=== PATIENT | male | born 1960 | race Caucasian/White ===

== ENCOUNTER 2019-01-22 11:59 | Inpatient (IN) | payer BC ==
[~2019-01-22] VITALS: Ht 177.8 cm; Wt 99.8 kg
[~2019-01-22 11:59] MED LIST: GLUMETZA500; LANTUS; LANTUS SUBQ
[2019-01-22 12:01] VITALS: BP 108/61
[2019-01-22 13:22] LABS: ABSOLUTE NEUTROPHILS 6.7 thou/uL (1.4-8.2); BASOPHILS 0.9 % (0.0-2.0); HEMATOCRIT 42.7 % (42.0-52.0); HEMOGLOBIN 14.3 gm/dL (14.0-18.0); LYMPHOCYTES 19.7 % (24.0-44.0); MCHC 33.4 g/dL (28.0-37.0); MONOCYTES 9.5 % (1.0-8.0); PLATELET COUNT 226 thou/uL (150-400); POLYS 66.9 % (36.0-66.0); RBC 5.09 mil/uL (4.50-6.00); RDW 13.1 % (10.5-14.5); WBC 9.9 thou/uL (4.0-11.0)
[2019-01-22 13:26] LABS: CALCIUM 8.5 mg/dL (8.5-10.1); POTASSIUM 4.3 mmol/L (3.5-5.1)
[2019-01-22 13:33] LABS: ALBUMIN 3.2 g/dL (3.4-5.0); TOTAL BILIRUBIN 0.5 mg/dL (<0.1-1.0)
[2019-01-22] MEDS ORDERED: LISINOPRIL10 MG PO (15:15)
[2019-01-22] MEDS ORDERED: KLOR-CON 1010 MEQ PO (15:15)
[2019-01-22] MEDS ORDERED: LEVEMIR SUBQ (15:16)
[2019-01-22] MEDS ORDERED: ALLOPURINOL 10100 M1 PO (15:16)
[2019-01-22] MEDS ORDERED: SYNTHROID50 MCG PO (15:20)
[2019-01-22] MEDS ORDERED: TRULICITY1.5 MG/0.5 SUBQ (15:22)
[2019-01-22] MEDS ORDERED: UNICOMPLEX M TA1 TA1 PO (15:23)
[2019-01-22 16:03] VITALS: BP 139/82
--- NOTE | 2019-01-22 16:12 | NUR ---
ATTEMPTED TO GIVE REPORT; CHARGE NURSE WILL CALL BACK ONCE ON UNIT
[2019-01-22 16:43] VITALS: BP 141/77
[2019-01-22 16:55] VITALS: BP 134/74
--- NOTE | 2019-01-22 17:26 | NUR ---
REC PT FROM ED WITH TWO ABX, ONE ALREADY RUNNING, VANCO AND ZOYSN, GAVE PT ROOM/CALL LIGHT DEMO, ROOM AIR, NO C/O PAIN AT THIS TIME. STATES HES FINE RE: PAIN AT THIS TIME. STATES HE FEELS BAD BEING HERE LIKE THERE ARE SO MANY OTHER SICK. CAME AT [employer]. HAS A COUGH FROM A RECENTLY ACQUIRED WHILE ON VACATION IN [place]. STATES HE ALWAYS GETS A COLD IF HE FLYS. ALSO HAS HAYFEVER, COUGH ONLY PRODUCTIVE AT TIMES, CLEAR. PAPERS SIGNED. ENCOURAGED HIM TO USE CALL LIGHT FOR ANY NEEDS
[2019-01-22 19:45] VITALS: BP 143/75
--- NOTE | 2019-01-22 20:03 | NUR ---
REQUESTED INPT RN COLLECT WOUND CX THIS RN RECEIVED HYPOTENSIVE PT AT TIME OF TRANSPORTING THIS PT; HS RN AGREES TO COLLECT AND SEND WOUND CULTURE; R FOOT
[2019-01-23 00:45] VITALS: BP 129/86
--- NOTE | 2019-01-23 03:45 | NUR ---
ASSUMED PT CARE AT 1900. PT A/OX4, VITAL SIGNS STABLE, ASSESSMENT CHARTED. NO COMPLAINTS OF PAIN. WOUND CULTURE DONE AND SENT TO LAB. RESTED WELL THROUGH THE NIGHT. PROGRESSING TOWARD PLAN OF CARE. CONTINUEING ABX, WILL CONTINUE TO MONITOR.
[2019-01-23 04:15] VITALS: BP 159/76
[2019-01-23 08:03] VITALS: BP 142/73
[2019-01-23 15:48] VITALS: BP 137/83
--- NOTE | 2019-01-23 18:30 | NUR ---
Assumed care of pt at 0700. Pt alert and oriented x4. Infectious disease DrElver and informatica architect saw pt today. IV antibiotics infusing. Assistant Facility Manager requests MRI. Ordered MRI. Pt scheduled for procedure tomorrow 01/24. Consent signed and in chart. No c/o pain. Will continue to monitor.
[2019-01-23 20:35] VITALS: BP 137/82
[2019-01-24] VITALS (9 sets, daily range): BP systolic 129–152; BP diastolic 62–92
--- NOTE | 2019-01-24 02:50 | NUR ---
DELAY IN 1700 VANCOMYCIN.ZOYSN STARTED LATE. PT REFUSED WHEN IDEA OF STARTING ANOTHER IV WAS PRESENTED.AT THIS POINT, WILL WAIT FOR ZOSYN TO BE COMPLETED BEFORE STARTING VANCOMYCIN. PHARMACY AWARE.
[2019-01-24 06:33] LABS: HEMOGLOBIN 15.1 gm/dL (14.0-18.0); MCH 28.1 pg (26.0-34.0); MCHC 33.6 g/dL (28.0-37.0); MCV 83.5 fL (80.0-100.0); RBC 5.39 mil/uL (4.50-6.00); RDW 13.3 % (10.5-14.5); WBC 7.8 thou/uL (4.0-11.0)
[2019-01-24 06:49] LABS: CALCIUM 8.8 mg/dL (8.5-10.1); CREATININE 0.9 mg/dL (0.7-1.3); POTASSIUM 4.2 mmol/L (3.5-5.1)
--- NOTE | 2019-01-24 09:06 | HC ---
[facility] [place] [address] CONSULTATION Name: CUONG FERNANDEZ Room #: 208-P ADM IN M.R.#: [id number] Admission: 01/22/19 ������������������ Attend Phys: Andres Victoria MD Discharge: ������������������ Date of : 56 Report #: [id number] THIS REPORT FOR: //name// CC: Jus Bello DO Andres Victoria DATE OF SERVICE: 01/23/2019 INFECTIOUS DISEASE CONSULTATION ATTENDING PHYSICIAN: Dr. Victoria. HISTORY OF PRESENT ILLNESS: A 58-year-old white man with right foot diabetic foot infection since 09/2018 or 10/2018. He was on a trip, lots of walking, felt that he might have developed some increasing pain and increased temperature right leg. He was advised to be admitted to the hospital through the Emergency Room to rule out deep infection. No systemic symptoms. PAST MEDICAL HISTORY: Gastric bypass surgery on an outpatient basis a couple of years ago, diabetes mellitus since 2009 or thereabouts. DRUG ALLERGIES: None listed. MEDICATIONS: The patient is currently on treatment with . Current medication, vancomycin 1 gram IV every 8 hours, Zosyn 3.37 grams IV every 8 hours, insulin glargine 30 units subQ at bedtime, insulin lispro per sliding scale, hydrocodone p.r.n., ondansetron p.r.n. SOCIAL HISTORY: [employer]. . No children. REVIEW OF SYSTEMS: No systemic symptoms, some pain right foot, increased temperature and swelling right lower extremity. Otherwise negative. PHYSICAL EXAMINATION: GENERAL: A well-developed man, not toxic looking, no distress. VITAL SIGNS: Temperature maximum 37.6, pulse 79, respirations 16, BP 142/73, height 5 feet 10 inches, weight 220 pounds. HEENMT: Within range. NECK: Supple. LUNGS: Clear. HEART: S1, S2. No gallops. ABDOMEN: Soft, no masses or megaly. GENITALIA AND RECTAL: Deferred. EXTREMITIES: Revealed some mild swelling of right foot and ankle. Good dorsalis pedis right foot. Increased temperature right foot and right leg [facility] [address] [place] [address] CONSULTATION Name: CUONG FERNANDEZ Room #: 208-P ADM IN .R.#: [id number] Admission: 01/22/19 ������������������ Attend Phys: Andres Victoria MD Discharge: ������������������ Date of : 56 Report #: [id number] compared to the left. There is an ulceration superficial under the head of the right fourth metatarsophalangeal joint. NEUROLOGIC: Grossly within normal limits. LABORATORY DATA: BUN 25, creatinine 169. C-reactive protein 28 mg/L. WBC 9900, hemoglobin 14.3 g/dL, platelets 226,000. White blood cell count differential revealed 66% segmented neutrophils, 19% lymphocytes. ESR 41 mm per hour. Vancomycin trough pending. X-rays of the right foot revealed no bony abnormalities. ASSESSMENT: 1. Cellulitis, right lower extremity. 2. Right foot ulcer, doubt a bone infection. 3. Diabetes mellitus. 4. Chronic kidney disease. SUGGESTIONS: While awaiting culture results, continue coverage with vancomycin and Zosyn. Doubt we are dealing with deep infection. A short hospitalization will benefit the patient to stable worsening of infection. Possibly discharge the patient shortly on oral antibiotic and continue follow up with Dr. Hernan Harris. Dr. Victoria, thank you for requesting my suggestions. ��������������������������������������������� <ELECTRONICALLY SIGNED> ���������������������������������������� By: Blair Luna MD ��������������������������������������������� 01/[birth year]1906 0933 58 Blair Luna MD /nt
--- NOTE | 2019-01-24 10:29 | H ---
[facility] [place] [place] [address] HISTORY AND PHYSICAL Name: CUONG FERNANDEZ Room #: 208-P ADM IN M.R.#: [id number] Admission: 01/22/19 ������������������ Attend Phys: Andres Victoria MD Discharge: ������������������ Date of : 56 Report #: [id number] THIS REPORT FOR: //name// CC: uJs Victoria DATE OF SURGERY: 01/24/2019 INTRODUCTION: The patient is a 58-year-old male who has been admitted to [facility] with a right diabetic foot infection. He originally had a wound that probes to the third metatarsophalangeal joint, dorsal cellulitis, surrounding erythema present. He has been on IV antibiotics for 24 hours and has shown some improvement in the dorsal inflammation. 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 Because of the exposed joint, MRI was ordered, which confirmed the presence of acute osteomyelitis in the third metatarsal head and possibly the base of the proximal phalanx with sepsis of what is remaining of the metatarsophalangeal joint. The patient's condition warrants more aggressive surgical intervention in the form of incision and drainage and third metatarsal head resection. PAST MEDICAL HISTORY: The patient has a history of diabetes with diabetic neuropathy. He has had multiple histories of past ulcerations involving predominantly the right foot including ulcerations of the right fifth toe, the plantar forefoot in the third metatarsal head area. Because of his neuropathy he has been at a greater risk for foot complications. In the past, his healing has been accomplished through offloading, oral antibiotics and local wound care. This most recent episode of ulceration has occurred while he was out of the country and spending considerable amount of time on his foot. The patient also is hypothyroid, hypertensive and has hypercholesterolemia. MEDICATIONS: The patient takes Trulicity, Symbicort, atorvastatin. ALLERGIES: The patient has no known allergies. PAST SURGICAL HISTORY: Includes appendectomy, blepharoplasty, left wrist fracture repair and gastric bypass without complications in surgery or anesthesia. SOCIAL HISTORY: The patient is gainfully employed, is engaged in frequent travel. Denies usage of alcohol, tobacco or illicit drugs. He does have a supportive home life. PHYSICAL EXAMINATION: VASCULAR: Pedal exam, dorsalis pedis, posterior tibial pulses graded at 2/4. Capillary refill time is within normal limits. The patient demonstrates 1+ pedal and lower leg edema bilaterally. The right foot is slightly more [facility] [address] [place] [address] HISTORY AND PHYSICAL Name: CUONG FERNANDZE Room #: 208-P [facility] IN [facility]#: [id number] Admission: 01/22/19 ������������������ Attend Phys: Andres Victoria MD Discharge: ������������������ Date of : 56 Report #: [id number] edematous in the forefoot region of the ulceration. NEUROLOGIC: The patient lacks protective threshold when tested with a Victoria-Yanely monofilament to the ankle level. DERMATOLOGIC: The patient demonstrates a 1.5 cm neuropathic ulceration beneath the right third metatarsophalangeal joint, which has probed to deeper structures including the third metatarsophalangeal joint and bone. There is no gross drainage at this time. This wound was debrided 24 hours ago and it appears to have sealed over. Remaining dorsal erythema from cellulitis has somewhat reduced. RADIOGRAPHIC EXAMINATION: MRI demonstrates a T1 marrow infiltration of the distal third metatarsal and proximal phalangeal base consistent with acute bone infection and joint sepsis. IMPRESSION: Diabetic neuropathy with diabetic foot wound, right foot and osteomyelitis of right third metatarsal and possibly proximal phalanx. PLAN: The patient's condition has been reviewed with him. He understands the gravity of the condition and the treatment recommendations, which include an open debridement of this ulcer and surgical resection of the third metatarsal head and possibly the base of the proximal phalanx. At this time, intraoperative findings will dictate whether or not there is a need for additional debridement. The patient will remain on IV antibiotics and we will initiate wound care with careful monitoring for progressive infectious changes. Once he is stable and final bacteriologic ID is made, a transition to outpatient therapy will be anticipated. The patient has been advised of potential risks and complications, which include but not limited to pain, swelling, bleeding, numbness, infection, delayed healing, tourniquet complications, anesthesia complications, transfer pressure to adjacent metatarsals, progressive infection requiring additional surgery or possible limb loss. The patient understands these issues and no questions regarding surgical approach and has given verbal consent to proceed. ��������������������������������������������� <ELECTRONICALLY SIGNED> ���������������������������������������� By: Hernan Harris DPM ��������������������������������������������� 01/24/19 1029 1720 1816 Hernan Harris DPM /deanne
--- NOTE | 2019-01-24 10:29 | HC ---
[facility] [place] [address] CONSULTATION Name: CUONG FERNANDEZ Room #: 208-P ADM IN M.R.#: [id number] Admission: 01/22/19 ������������������ Attend Phys: Andres Victoria MD Discharge: ������������������ Date of : 56 Report #: [id number] THIS REPORT FOR: //name// CC: JOYA Bello DO Andres Victoria DATE OF SERVICE: 01/23/2019 INTRODUCTION: The patient is a 58-year-old male, who is being seen at [facility] for infection involving his right foot. The patient is well known to me as I have seen him in our private practice over the past 4 years for various conditions regarding his feet. Most recently, he has presented to our office 2 weeks following the onset of recurrent ulcer on the plantar right foot that tracts to deep tissues and demonstrated dorsal cellulitis. He has been admitted for IV antibiotics and further evaluation with regard to this condition. PAST MEDICAL HISTORY: Includes a history of diabetes mellitus with peripheral neuropathy. He indicates that his blood sugars have been reasonably well managed over time. The remainder of his past medical history with regard to this admission is noncontributory. PEDAL EXAM: The patient's dorsalis pedis and posterior tibial pulses are graded 2/4 bilaterally, capillary refill time is within normal limits. Neurologically, the patient lacks protective threshold to the ankle level and has had repeat ulcerations, predominantly on the right foot that have been associated with his neuropathy. He has been somewhat resistant to protection of his feet; however, has more recently adopted the usage especially the insoles and extra depth shoes. His clinical exam reveals a 1.5 cm ulceration in plantar aspect of the right third metatarsal head, which today looks improved following more aggressive debridement 24 hours ago. This wound probed to joint and deeper tissues and was irrigated and cleansed in our office. Today, there is a reduction in overall edema and dorsal cellulitis in this area. Compression around the wound does not exude any pus. IMAGING STUDIES: The patient's radiographs in our office and in the hospital indicative of second and third metatarsophalangeal joint and chronic dislocations without any evidence of osteomyelitis at the third metatarsal head. IMPRESSION: 1. Diabetes mellitus with diabetic peripheral neuropathy. 2. Diabetic foot infection that probes to joint. PLAN: The patient's condition has improved apparently through a combination of [address] [address] CONSULTATION Name: CUONG FERNANDEZ Room #: 208-P [facility] IN M.R.#: [id number] Admission: 01/22/19 ������������������ Attend Phys: Andres Victoria MD Discharge: ������������������ Date of : 56 Report #: [id number] debridement, offloading and IV antibiotics. We will obtain MRI to ensure that he does not have an underlying bone infection. Based on the study and his future progress, we will make decisions regarding next steps in care, which could ideally include a transition to home antibiotic therapy versus a possible need for more aggressive debridement at this site. ��������������������������������������������� <ELECTRONICALLY SIGNED> ���������������������������������������� By: Hernan Harris DPM ��������������������������������������������� 01/24/19 1029 1314 0039 Hernan Harris DPM /nt
--- NOTE | 2019-01-24 11:56 | NUR ---
DISCOVERED PT WAS TO MOVE TO 4E AFTER HIS SURGERY, GAVE FULL REPORT TO JARED TONY WHO STATED HE ALSO HAD PT DAY PRIOR
--- NOTE | 2019-01-24 13:11 | NUR ---
GAVE REPORT TO BARRY ON 4E, WILL GATHER UP SUPPLIES AND HAVE VOLUNTEER TRANSPORT BELONGINGS TO UPSTAIRS
--- NOTE | 2019-01-24 14:55 | NUR ---
FAXED REFERRAL TO [facility] FOR IV INFUSION SPOKE WITH MARVIN IN INTAKE AND SHE RECEIVED REFERRAL AND WILL CHECK BENEFITS. DCP TO FOLLOW.
--- NOTE | 2019-01-24 15:40 | NUR ---
Case opened to follow for dc planning. Pt is s/p I&D today of diabetic RLE plantar wound. Newly dx osteo and on iv atb. Pt is A&ox4 and able to participate in cm assessment at bedside. CM role introduced. Possible need for iv atb and wound care f/u anticipated. Pt is open to home infusion, home health and/or outpt services pending the care team recommendations. Home infusion benefits check per [facility] as they are in network with the pt's insurance plan. The pt does have both HH and infusion coverage at 80%. He has met his deductable for the year and would have 100% coverage once his out of pocket max has been met. His copay will vary depending on the drug. He has a flight of stairs up to his bedroom with attached bath. He lives with his who is currently on summer break from her teaching job;therefore able to assist as needed. Home address verified. Pcp is Dr. Bello. Dc timeframe is uncertain. Will follow.
--- NOTE | 2019-01-24 18:22 | NUR ---
Pt came up to unit from PACU approx 1400. Post-op I&D right foot. Denies pain. Dressing clean and intact. IV antibiotics infusing. Accu checks achs. Pt refuses insulin. No c/o at this time. Will continue to monitor.
[2019-01-25 03:35] VITALS: BP 137/80
--- NOTE | 2019-01-25 05:49 | NUR ---
PATIENT ALERT AND ORIENTED X4. UP TO BATHROOM AD CIERA. DRESSING ON R FT D/I. DENIES PAIN. BS 285, RECIEVED 6 UNITS LISPRO INSULIN WELL HIS STANDARD INSULIN. SLEPT OFF AND ON DURING NIGHT.
[2019-01-25 07:50] VITALS: BP 142/83
--- NOTE | 2019-01-25 09:01 | NUR ---
ASSUMED CARE OF PT AT 0700. ASSESSMENT CHARTED. A&O,X4. S/P RIGHT FOOT I&D, TROY WRAP IN PLACE. DENIES PAIN. DR. RODRIGUEZ AT BEDSIDE THIS AM. ACHS, INSULIN GIVEN PER SLIDING SCALE. PT IN STABLE CONDITION. WILL CONTINUE TO MONITOR.
--- NOTE | 2019-01-25 09:17 | O ---
[facility] [place] [address] OPERATIVE REPORT Name: CUONG FERNANDEZ Room #: 424-P ADM IN M.R.#: [id number] Admission: 01/22/19 ������������������ Attend Phys: Andres Victoria MD Discharge: ������������������ Date of : 56 Report #: [id number] THIS REPORT FOR: //name// CC: Jus Vicotria ____ ____ DATE OF SERVICE: 01/24/2019 PREOPERATIVE DIAGNOSIS: Diabetic foot ulcer with osteomyelitis, right third metatarsal. POSTOPERATIVE DIAGNOSIS: Diabetic foot ulcer with osteomyelitis, right third metatarsal. PROCEDURE: Incision and drainage, right foot wound with third metatarsal head resection. ANESTHESIA: General with local anesthetic. DESCRIPTION OF PROCEDURE: The patient was brought to the operating room and placed on the operating room table in supine position. Three layers of Webril padding were placed around the right ankle. Pneumatic ankle tourniquet was placed over this in preparation for later inflation. IV sedation was begun without complications. A 10 mL of 1:1 mix of 1% lidocaine plain and 0.5% Marcaine plain were injected at the midshaft of the third metatarsal to obtain local anesthesia. Foot was prepped and draped in usual sterile fashion. Esmarch bandage was then used to exsanguinate the right foot. Ankle tourniquet was inflated to 250 mmHg. Attention was then directed to the plantar aspect of the right foot where 1.5 cm ulceration was excised sharply. At the level of subcutaneous tissue, there was a necrotic fat. No gross pus was encountered; however, there was a thin drainage from this area as well as from the third metatarsophalangeal joint. Inspection revealed necrosis and essentially absence of plantar stabilizing structures for the joint including the joint capsule, plantar plate. Flexor tendon was yellow and of poor quality. Debridement of all the soft tissues was performed. The third metatarsal head cartilage was yellow and the metatarsal head itself was soft to probing. This time, metatarsal head was removed at a point where the metatarsal neck was free from necrotic tissue and was of normal consistency. Oscillating saw was used to transect the metatarsal head and removal allowed for inspection of the dorsal joint. There was no additional dorsal necrosis. The base of the proximal phalanx was inspected and was free of necrosis and was of normal integrity. Rongeur was used to remove necrotic tissue from the periarticular areas and the wound area was then irrigated with 3 liters of antibiotic solution utilizing pulse lavage. The wound was then inspected for additional pathology, none was identified. It was then packed with quarter strength Dakin's gauze following [address] [address] OPERATIVE REPORT Name: CUONG FERNANDEZ Room #: 424-P ADM IN M.R.#: [id number] Admission: 01/22/19 ������������������ Attend Phys: Andres Victoria MD Discharge: ������������������ Date of : 56 Report #: [id number] release of the ankle tourniquet. Bulky bandages were applied with Samm bandage. There was normal return of blood flow to all toes as indicated by capillary refill time of less than 3 seconds. The patient was alert and reactive in the operating room and subsequently transferred to the postanesthesia recovery room where vital signs were monitored by recovery room staff. There were no complications during the procedure. There was osseous specimen sent to pathology for examination. Culture and sensitivity swabs were obtained prior to irrigation and changing of gloves. The patient was seen in recovery area, was noted to be in stable condition and will be transferred to the hospital floor per anesthesia. We will begin his first dressing changes starting tomorrow and continue antibiotics as per Dr. Luna. It is possible that if his wound is stable that transition to outpatient therapy could be considered in the next 48 hours. ��������������������������������������������� <ELECTRONICALLY SIGNED> ���������������������������������������� By: Hernan Harris DPM ��������������������������������������������� 01/25/19 0917 1506 1548 Hernan Harris DPM /deanne
--- NOTE | 2019-01-25 10:37 | NUR ---
Notification of pt with plantar diabetic foot wound requiring surgical intervention 01/24. Pt voices very good appetite and eating high protein at every meal, not many carbs. Able to order own meals. BG started very high yesterday up to 337 but now 166. Had no dietary questions. Low nutrition risk
--- NOTE | 2019-01-25 11:08 | NUR ---
WOUND CARE; BROUGHT AN OFFLOADING SHOE ORDERED AND EDUCATED THE PATIENT ON ITS USE. THE PATIENT ACKNOWLEGES UNDERSTANDING. HE IS ON BED REST AND WILL NOT NEED IT UNTIL DISCHARGE. DISCUSSED WITH RN
[2019-01-25] MEDS ORDERED: HYDROCODON-ACE1 EAC7 PO (13:40)
[2019-01-25] MEDS ORDERED: VANCO 1 GR1 GM/250 M IVPB (13:41)
[2019-01-25 14:06] VITALS: BP 142/83
[2019-01-25 16:15] VITALS: BP 142/83
--- NOTE | 2019-01-28 07:56 | HC ---
[facility] [place] [address] CONSULTATION Name: CUONG FERNANDEZ Room #: 424-P [facility] M.R.#: [id number] Admission: 01/22/19 ������������������ Attend Phys: Andres Victoria MD Discharge: 01/25/19 ������������������ Date of : 56 Report #: [id number] THIS REPORT FOR: //name// CC: Jus Victoria DATE OF SERVICE: 01/23/2019 CHIEF COMPLAINT: Diabetic foot ulceration. HISTORY OF PRESENT ILLNESS: This is a 58-year-old male patient admitted to the hospital with pain, swelling and drainage from an ulceration on the plantar aspect of his right foot. He has had a neuropathic ulceration over the last couple of weeks with increasing drainage. It did probe to the metatarsophalangeal joint and he is admitted for further evaluation and treatment. PAST MEDICAL HISTORY: Positive for diabetes mellitus with peripheral neuropathy, hypercholesterolemia and diabetes. ALLERGIES: No known drug allergies. MEDICATIONS: Allopurinol, Trulicity hydrocodone, insulin, Synthroid, lisinopril, multivitamin, vancomycin. SOCIAL HISTORY: Negative for alcohol or tobacco. FAMILY HISTORY: Noncontributory. REVIEW OF SYSTEMS: CONSTITUTIONAL: The patient denies fever, chills or weight loss. EYES: The patient denies visual changes, redness or drainage. ENT: The patient denies earache, nasal drainage, sore throat. CARDIOVASCULAR: The patient denies chest pain, palpitations or diaphoresis. PULMONARY: The patient denies cough or shortness of breath. GASTROINTESTINAL: The patient denies nausea, vomiting, diarrhea or abdominal pain. ORTHOPEDIC: The patient denies pain or swelling of the extremities, but does note the drainage and ulceration involving the plantar aspect of his right foot. Other systems in a 14-point review of systems are negative. PHYSICAL EXAMINATION: VITAL SIGNS: Include temperature 36.8, pulse 81, respiratory rate of 18, blood pressure 137/83. GENERAL: A well-developed, well-nourished male patient who appears to be in [address] [address] CONSULTATION Name: CUONG FERNANDEZ Room #: [address] [place] [address] [place] M.R.#: [id number] Admission: 01/22/19 ������������������ Attend Phys: Andres Victoria MD Discharge: 01/25/19 ������������������ Date of : 56 Report #: [id number] minimal distress. HEENT: Head normocephalic. Nose and throat clear. NECK: Supple. LUNGS: Clear. HEART: Regular. ABDOMEN: Soft. Bowel sounds present. EXTREMITIES: Lower extremities demonstrate easily palpable distal pulses. He has an ulceration on the plantar aspect of the right foot underlying the third MTP area. It does probe to the MTP joint. LABORATORY DATA: Include sodium 139, potassium 4.3, chloride 105, CO2 of 21, BUN 25, creatinine 1.0, glucose 169. Lactic acid 1.2, albumin is 3.2. White blood cell count 9.9 with hemoglobin of 14.3. MRI demonstrates findings consistent with osteomyelitis of the third metatarsal and possibly the proximal phalanx. CLINICAL IMPRESSION: 1. 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 2. 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 3. Type 2 diabetes mellitus. RECOMMENDATIONS: At this time, we will recommend silver alginate to the ulceration and IV antibiotics. The patient is scheduled for surgical resection with Dr. Harris which I agree. We will follow him postoperatively. He will need to offload this area and will need aggressive nutritional support to maintain wound healing. I appreciate being asked to see him in consultation. ��������������������������������������������� <ELECTRONICALLY SIGNED> ���������������������������������������� By: Gilmar Chin MD ��������������������������������������������� 01/28/19 0756 [id number] Gilmar Chin MD /nt
--- NOTE | 2019-01-28 17:05 | PATH ---
[facility] [place] [address] PATHOLOGY RPT PROCEDURE Name: KORY FERNANDEZ Room #: 424-P DIS IN M.R.#: [id number] ������������������ Admission: 01/22/19 ������������������ Date of : 56 Discharge: 01/25/19 Report #: [id number] Path Case #: [id number] [facility] Accession Number: [id number] . 01 Material submitted: . foot - METATARSAL HEAD RIGHT FOOT. Modifiers: right, head . 01 Clinical history: . Osteomyelitis. . 02 Diagnosis: Skin and bone, metatarsal head right foot, debridement with irrigation: - Skin and subcutaneous tissue with ulceration, fibrinoid necrosis and granulation tissue extending into underlying bone consistent with acute osteomyelitis. (IUV:tana; 01/28/2019) QMS/01/28/2019 . 02 Electronically signed: . Sharona Fernandes MD, Pathologist NPI- [id number] . 01 Gross description: . Received in formalin labeled "Kory Fernandez, metatarsal head right foot" are multiple irregular fragments of herrera-yellow soft tissue and a segment of herrera-white bone measuring in aggregate 3.3 x 2.6 x 1.8 cm. A smooth bone resection margin is identified and is inked black. The opposite aspect displays a convex cartilaginous covered disarticulation. Multiple herrera-red possible lesional areas are identified on the soft tissue. Attendant [employer] sections of the specimen are submitted as follows: A1-A2 sales representative printing supplies soft tissue A3 sales representative printing supplies bone (decalcified) ([facility]; 01/24/2019) SYC/SYC . 02 Pathologist provided ICD-10: L97.519, I96, M86.171 . 02 CPT . 047081 Specimen Comment: A courtesy copy of this report has been sent to Specimen Comment: [phone], , . Specimen Comment: Report sent to ,DR SOTOMAYOR / DR KIRKPATRICK Performed at: [address] [facility] [address] [id number] MD Junito Hill MD Phone: [phone] Performed at: 02 [place] [address] PATHOLOGY RPT PROCEDURE Name: KORY FERNANDEZ Room #: 424-P DIS IN M.R.#: [id number] ������������������ Admission: 01/22/19 ������������������ Date of : 56 Discharge: 01/25/19 Report #: [id number] Path Case #: [id number] [facility] [address], [place], [place] [id number] MD Sharona Fernandes MD Phone: [phone]
== END 2019-01-25 16:52 | disposition home health service (06) | DRG 629 ==
LOC: ER 11:59 → 2N 14:46 → EROBS 14:46 → 2N 16:43 → 4E 01-24 14:12
PROVIDERS: Hospitalist; Physician Assistant; ADMIT Internal Medicine
PROC: 0QBN0ZZ Excision of Right Metatarsal, Open Approach (ICD-10-PCS; 2019-01-24)
PROC: 02HV33Z Insertion of Infusion Device into Superior Vena Cava, Percutaneous Approach (ICD-10-PCS; principal; 2019-01-25)
DX: E11.69 Type 2 diabetes mellitus with other specified complication (principal); E11.52 Type 2 diabetes mellitus with diabetic peripheral angiopathy with gangrene; L03.115 Cellulitis of right lower limb; M86.8X8 Other osteomyelitis, other site; M00.9 Pyogenic arthritis, unspecified; I96 Gangrene, not elsewhere classified; M86.8X7 Other osteomyelitis, ankle and foot; E11.621 Type 2 diabetes mellitus with foot ulcer; E11.22 Type 2 diabetes mellitus with diabetic chronic kidney disease; N18.9 Chronic kidney disease, unspecified; E11.42 Type 2 diabetes mellitus with diabetic polyneuropathy; L97.519 Non-pressure chronic ulcer of other part of right foot with unspecified severity; E78.00 Pure hypercholesterolemia, unspecified; I12.9 Hypertensive chronic kidney disease with stage 1 through stage 4 chronic kidney disease, or unspecified chronic kidney disease; E03.9 Hypothyroidism, unspecified; Z79.899 Other long term (current) drug therapy; Z95.1 Presence of aortocoronary bypass graft; Z90.49 Acquired absence of other specified parts of digestive tract; Z98.84 Bariatric surgery status; Z79.82 Long term (current) use of aspirin; Z79.84 Long term (current) use of oral hypoglycemic drugs
CPT/HCPCS: 10194; 10783; 27000; 50010; 50101; 50386; 50951; 53078; 57091; 57103; 57178; 62110; 62850; 70005

== ENCOUNTER 2019-01-26 13:02 | Emergency (ER) | payer BC ==
[~2019-01-26] VITALS: Ht 177.8 cm; Wt 99.8 kg
[~2019-01-26 13:02] MED LIST changes: +ALLOPURINOL 10100 M1 PO; +HYDROCODON-ACE1 EAC7 PO; +KLOR-CON 1010 MEQ PO; +LEVEMIR SUBQ; +LISINOPRIL10 MG PO; +SYNTHROID50 MCG PO; +TRULICITY1.5 MG/0.5 SUBQ; +UNICOMPLEX M TA1 TA1 PO; +VANCO 1 GR1 GM/250 M IVPB
[2019-01-26 14:02] VITALS: BP 103/54
--- NOTE | 2019-01-26 14:43 | NUR ---
PAITIENT ARRIVED IN THE ER, UNABLE TO FLUSH PICC LINE. LINE PLACED YESTERDAY AND CONFIRMED WITH XRAY PRIOR TO DISCHARGE. VASCULAR ACCESS NURSE ROUNDING. LINE DRESSING C/D/I WITH BLOOD NOTED IN SINGLE LUMEN PICC. PATIENT REPORTS UNABLE TO FLUSH PICC LINE AFTER ANTIBIOTIC INFUSION. CAP REMOVED AND LINE FLUSHED WITH 20CC NS WITHOUT DIFFICULTY. A NEW STERILE CAP WAS PLACED. LINE HAS BRISK BLOOD RETURN. LINE WNL. REQUESTED A STAT CHEST XRAY TO VERIFY TIP PLACEMENT PRIOR TO DISCHARGE FROM ER. EDUCATION DONE AND PATIENT RECEPTIVE TO TEACHING.
== END 2019-01-26 14:03 | disposition home or self-care (01) ==
LOC: ER 13:02
DX: T82.898A Other specified complication of vascular prosthetic devices, implants and grafts, initial encounter (principal); E11.9 Type 2 diabetes mellitus without complications; Z90.49 Acquired absence of other specified parts of digestive tract; Z96.632 Presence of left artificial wrist joint; Z98.84 Bariatric surgery status; Z79.4 Long term (current) use of insulin; Y84.9 Medical procedure, unspecified as the cause of abnormal reaction of the patient, or of later complication, without mention of misadventure at the time of the procedure; Y92.89 Other specified places as the place of occurrence of the external cause

== ENCOUNTER → 2019-01-30 | Outpatient (CLI) | payer BC ==
--- NOTE | 2019-01-31 08:52 | HC ---
[facility] [place] [address] CONSULTATION Name: CUONG FERNANDEZ Room #: REG JEREMIAH [place]#: [id number] Admission: 01/30/19 ������������������ Attend Phys: Gilmar Chin MD Discharge: ������������������ Date of : 56 Report #: [id number] THIS REPORT FOR: //name// CC: Jus Chin OFFICE NOTE HISTORY OF PRESENT ILLNESS: This is a 58-year-old white man who was diagnosed to have osteomyelitis and septic arthritis, right third metatarsophalangeal joint area and underwent resection of the right third metatarsal head. Cultures revealed methicillin-resistant Staphylococcus aureus. He was discharged on intravenous vancomycin 1 gram IV daily. He is tolerating medication well, doing fine, had some problems with the IV - PICC line being clotted, was de-clotted in the Emergency Room. All in all, he is doing well. Besides vancomycin, he is on treatment with lisinopril, potassium chloride, insulin detemir, allopurinol, levothyroxine, Trulicity and multivitamins with iron. PHYSICAL EXAMINATION: GENERAL: A well-developed, hes-nmiqm-hwcsote man, in no distress. VITAL SIGNS: Stable. LUNGS: Clear to auscultation. HEART: S1, S2. No gallop or murmur. ABDOMEN: Soft. No masses or organomegaly. EXTREMITIES: The left arm PICC site looks fine. Dressings in place, being changed weekly. The right foot examination reveals a surgical wound under the head of the right metatarsophalangeal joint area. The wound is extremely clean. Peripheral pulses on the right foot readily palpable. LABORATORY DATA: On 01/28/2019 revealed normal CBC and CMP. The vancomycin trough was a little bit on the low side at 9.9 mcg/mL, in view of delay in obtaining the blood draw. The sedimentation rate was 6 mm per hour. ASSESSMENT: 1. Methicillin-resistant Staphylococcus aureus infection, right foot with evidence of osteomyelitis of the right third metatarsal, status post resection of the metatarsal head. 2. Diabetes mellitus. PLAN: Recommend continued treatment with vancomycin 1 g IV every 12 hours, will complete 4 weeks of treatment. Once intravenous antibiotic is completed, we will put the patient on Minocin 100 mg p.o. b.i.d. for several weeks. We will [address] [address] CONSULTATION Name: JAMARCUSKIELCUONG Room #: REG [facility] Yadi.#: [id number] Admission: 01/30/19 ������������������ Attend Phys: Gilmar Chin MD Discharge: ������������������ Date of : 56 Report #: [id number] visit with the patient at wound care hyperbaric clinic when he visits with Dr. Chin again. ��������������������������������������������� <ELECTRONICALLY SIGNED> ���������������������������������������� By: Blair Luna MD ��������������������������������������������� 01/31/19 0852 0932 1312 Blair Luna MD /nt
== END ==
LOC: HYPER 06:46
DX: T81.89XA Other complications of procedures, not elsewhere classified, initial encounter (principal); E11.621 Type 2 diabetes mellitus with foot ulcer; L97.512 Non-pressure chronic ulcer of other part of right foot with fat layer exposed; E11.69 Type 2 diabetes mellitus with other specified complication; M86.171 Other acute osteomyelitis, right ankle and foot; E07.89 Other specified disorders of thyroid; I10 Essential (primary) hypertension; Z79.84 Long term (current) use of oral hypoglycemic drugs; Z79.4 Long term (current) use of insulin; Y92.89 Other specified places as the place of occurrence of the external cause; Y83.8 Other surgical procedures as the cause of abnormal reaction of the patient, or of later complication, without mention of misadventure at the time of the procedure

== ENCOUNTER → 2019-02-18 | Outpatient (CLI) | payer BC ==
--- NOTE | 2019-02-19 09:15 | HC ---
[facility] [address] CONSULTATION Name: CUONG FERNANDEZ Room #: REG JEREMIAH Grullon[place]ver#: [id number] Admission: 02/18/19 ������������������ Attend Phys: Gilmar Chin MD Discharge: ������������������ Date of : 56 Report #: [id number] THIS REPORT FOR: //name// CC: Jus Chin MD DATE OF SERVICE: 02/18/2019 INFECTIOUS DISEASE HYPERBARIC CLINIC PROGRESS NOTE The patient on IV vancomycin 1 gram IV daily, has completed treatment today, still have 2 doses at home. The right foot wound is completely healed. He has no discomfort in the area. Wondering about test results of blood tests obtain early this morning. I contacted [facility], they do not have report of these tests yet. DRUG ALLERGIES: None listed. MEDICATIONS: Trulicity 1.5 mg subQ once weekly, lisinopril 10 mg daily, allopurinol 100 mg b.i.d., Levemir 30 units subQ at bedtime, multivitamins with iron daily, KCl 10 mEq daily, levothyroxine 50 mcg daily, Dakin's topical no longer needing; vancomycin IV 1 gram daily. REVIEW OF SYSTEMS: No complaints. PHYSICAL EXAMINATION: GENERAL: Well-developed, not toxic looking. VITAL SIGNS: BP 131/85, temperature 98.4, pulse 82, respirations 16. LUNGS: Clear. HEART: S1, S2. ABDOMEN: Soft. EXTREMITIES: Right foot with no signs of infection and surgical wound completely healed. ASSESSMENT: 1. Methicillin-resistant Staphylococcus aureus infection, right foot, status post incision and drainage, and treatment with vancomycin since 01/24/2019. 2. Diabetes mellitus. PLAN: 1. Discontinue vancomycin. 2. Removed PICC, pressure dressing applied, minocycline 100 mg p.o. b.i.d., [facility] [address] [place] [address] CONSULTATION Name: CUONG FERNANDEZ Room #: REG CL Yadi.#: [id number] Admission: 02/18/19 ������������������ Attend Phys: Gilmar Chin MD Discharge: ������������������ Date of : 56 Report #: [id number] #60, notify problems, baby food for time being. Would not surprise me if we have a relapse. The patient to contact me with complications or questions. ��������������������������������������������� <ELECTRONICALLY SIGNED> ���������������������������������������� By: Blair Luna MD ��������������������������������������������� 02/19/19 0915 1217 1329 Blair Luna MD /nt
== END ==
LOC: HYPER 06:53
DX: T81.89XD Other complications of procedures, not elsewhere classified, subsequent encounter (principal); E11.621 Type 2 diabetes mellitus with foot ulcer; L97.512 Non-pressure chronic ulcer of other part of right foot with fat layer exposed; E11.69 Type 2 diabetes mellitus with other specified complication; M86.171 Other acute osteomyelitis, right ankle and foot; E07.89 Other specified disorders of thyroid; I10 Essential (primary) hypertension; M00.871 Arthritis due to other bacteria, right ankle and foot; Z79.84 Long term (current) use of oral hypoglycemic drugs; Z79.4 Long term (current) use of insulin; Y83.8 Other surgical procedures as the cause of abnormal reaction of the patient, or of later complication, without mention of misadventure at the time of the procedure